=== PATIENT | male | born 1940 | race Caucasian/White ===

== ENCOUNTER → 2016-10-16 | Outpatient (REF) ==
[~2016-10-16] MED LIST: ALBUTEROL1.25 MG/3 IH; AMBIEN 10MG10 MG PO; AMOXICILLIN 50500 MG PO; AMOXICILLIN 8751 TAB PO; ASPIRIN 32325 MG/TAB PO; ASTELIN NASAL S34 ML NS; ATROVENT I0.2 MG/1 M IH; BROVANA15 MCG/2 M IH; BYSTOLIC2.5 MG PO; DALIRESP500 MCG PO; DEPO-TESTOS100 MG/ML IM; DESYREL 50MG50 MG PO; FLOMAX 0.40.4 MG/CAP PO; FORADIL AERO0.012 MG IH; FORADIL IH; GABAPENTIN300 M1 PO; GLUCOPHAGE XR500 M1 PO; GLUCOPHAGE500 MG/TAB PO; KLONOPIN 0.5MG0.5 MG PO; KLOR-CON 1010 MEQ PO; LAMICTAL 25MG T25 MG PO; LANTUS100 U/ML SC; LANTUS100 U/ML SQ; LASIX 20MG TABL20 MG PO; LEVOXYL0.05 MG PO; LIPITOR20 MG PO; LITHIUM 30300 MG/CAP PO; LOPRESSOR 225 MG/TAB PO; METOPROLOL SUCC25 MG PO; MOBIC15 MG PO; MORPHINE 1515 MG/TAB PO; NICODERM C14 MG/PATC TOP; NORVASC 5MG5 MG/TAB PO; OMNICEF 300MG300 MG PO; PLAVIX 75MG TAB75 MG PO; PREDNISONE10 MG PO; PRILOSEC 20MG20 MG PO; PROVENTIL0.09 MG/A1 IH; PULMICORT0.25 MG/2 IH; RT SPIRIVA18 MCG IH; SEROQUEL50 MG PO; SPIRIVA INH IH; SPORANOX100 MG PO; SSKI1 GM/ML PO; SYNTHROID0.05 MG/TA PO; THEO-24100 MG PO; THEO-DUR 1100 MG/TAB PO; TOPROL XL 25MG25 MG PO; VITAMIN B11000 MCG/M IM; XOPENEX 1.1.25 MG/3 IH; XOPENEX HF0.045 MG/A IH; ZITHROMAX500 M2 PO; ZOCOR 40MG40 MG PO; ZOCOR40 MG PO
== END ==
LOC: ZLAB.WCH 10:15
DX: Z01.89 Encounter for other specified special examinations (principal)

== ENCOUNTER → 2017-04-08 | Outpatient (REF) | LOC: ZLAB.WCH 18:16 | DX: Z01.89 Encounter for other specified special examinations (principal) ==